=== PATIENT | female | born 1990 | race American Indian/Alaskan Native ===

== ENCOUNTER 2017-10-13 09:29 | Day surgery (SDC) | payer MEDICAID ==
[~2017-10-13 09:29] MED LIST: LACTATED RINGERS 1,000 ML IV SCH; VERSED IV NR; ZOFRAN IV PRN
[2017-10-13] MEDS ORDERED: DILAUDID ONE (10:18)
[2017-10-13] MEDS ORDERED: XYLOCAINE MPF 2% ONE (10:18)
[2017-10-13] MEDS ORDERED: DIPRIVAN 10 MG/ML IV ONE (10:19)
[2017-10-13] MEDS ORDERED: NACL BACTERIOSTATIC INFILTRATI ONE (10:58)
[2017-10-13] MEDS ORDERED: LACTATED RINGERS 1,000 ML IV SCH (11:00)
--- NOTE | 2017-10-13 11:23 | Anesthesia Consultation ---
Anesthesia Consult and Med Hx Date of service: 10/13/17 - Airway Anesthetic Teeth Evaluation: Good ROM Head & Neck: Adequate Mental/Hyoid Distance: Adequate Mallampati Class: Class III Intubation Access Assessment: Possibly Difficult - Pulmonary Exam CTA: Yes - Cardiac Exam Cardiac Exam: RRR - Pre-Operative Health Status ASA Pre-Surgery Classification: ASA2 Proposed Anesthetic Plan: General - Pulmonary Hx Smoking: Yes (SMOKING X 10 YRS) Hx Sleep Apnea: No (CASANDRA PRE SCREEN NEGATIVE) - Cardiovascular System Hx Hypertension: No - Hematic Hx Anemia: No - Other Systems Hx Cancer: No
--- NOTE | 2017-10-13 11:24 | Anesthesia Day of Surgery ---
Anesthesia Day of Surgery - Day of Surgery Patient Examined: Yes Patient H&P Reviewed: Yes Patient is NPO: Yes
[2017-10-13 11:37] LABS: Hematocrit 35.3 % (30.3-42.9); Hemoglobin 11.5 gm/dl (10.1-14.3)
[2017-10-13] MEDS ORDERED: SILVER NITRATE TP ONE (12:05)
[2017-10-13] MEDS ORDERED: SORBITOL-MANNITOL IRRIG IR ONE (12:09)
[2017-10-13] MEDS ORDERED: ZOFRAN ONE (12:25)
[2017-10-13] MEDS: DILAUDID IV PRN ×3 (13:00→13:30)
[2017-10-13] MEDS ORDERED: DILAUDID PO ONE (13:31)
--- NOTE | 2017-10-13 13:58 | Post Anesthesia Evaluation ---
- Post Anesthesia Evaluation Patient Participated: Yes Airway Patent: Yes Stable Respiratory Function: Yes Nausea/Vomiting: No Temp > 96.8F: Yes Pain Manageable: Yes Adequeate Hydration: Yes Anesthesia Complications: No
--- NOTE | 2017-10-13 15:46 | Operative Report ---
Operative Report Operative Report: Preoperative diagnosis: 1. Abnormal uterine bleeding. 2. Thickened endometrial lining. Postoperative diagnosis: Asked preoperative diagnosis. Procedure: 1. Hysteroscopy. 2. Dilation and curettage. Surgeon: Dr. Cleveland Compound Finisher: none Anesthesia: IV sedation EBL: Minimal IVF: 1 L of RL Complications: None Procedure details: Risks, benefits, and alternatives of the procedure were discussed in detail with the patient which included but not limited to risk of infection, hemorrhage requiring blood transfusion, uterine perforation, the patient expressed understanding, her questions were answered, and she gave informed consent. The patient was taken to the operating room with an IV fluid infusing Ringers's lactate. In the operating room, she was placed in the dorsal supine position and given IV sedation. She was then placed on the stirrups in a dorsolithotomy position. The perineum, vagina, and cervix were washed and she was prepared and draped in usual sterile fashion. Examination under anesthesia revealed normal external genitalia, vagina, and cervix. The uterus was 9 weeks size, anteverted, and mobile. The adnexae were nonpalpable. The weighted speculum was placed in the posterior vaginal wall and the anterior lip of the cervix was grasped with Allis clamps. The cervical os was dilated endocervical curettage was done. The hysteroscope was introduced into the uterine cavity and it revealed a thickened endometrial lining with sloughing of endometrial cells. The left ostium was visualized. The hysteroscope was removed from the uterine cavity and a gentle curettage was performed until a gritty texture was noticed. The specimen which consisted of ECC and EMC was sent to pathology. The instrument were then removed from the uterus, cervix, and vagina. The counts of laps, needles, sponges, and instruments were correct 2. The patient tolerated the procedure well. She was awakened from the anesthesia and taken to the recovery room in a stable condition.
[2017-10-13 19:29] VITALS: BP 108/78
== END 2017-10-13 14:55 | disposition home or self-care (01) ==
LOC: OR 09:29
PROVIDERS: ATTEND Obstetrics & Gynecology
DX: N92.0 Excessive and frequent menstruation with regular cycle (principal); R93.8 Abnormal findings on diagnostic imaging of other specified body structures; E78.00 Pure hypercholesterolemia, unspecified; F17.210 Nicotine dependence, cigarettes, uncomplicated; Z98.891 History of uterine scar from previous surgery; Z88.6 Allergy status to analgesic agent
CPT/HCPCS: 36415; 58558; 81025; 85014; 85018; 88305; J1170; J2250; J2405; J2704; J7120